=== PATIENT | male | born 1960 | race Caucasian/White ===

== ENCOUNTER 2023-10-23 21:03 | Emergency (ER) | payer SELFPAY ==
[2023-10-23 21:05] VITALS: BP 144/85
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
[2023-10-23 22:32] VITALS: BP 116/66
== END 2023-10-23 22:46 | disposition home or self-care (01) ==
LOC: EMR 21:03
PROVIDERS: EMERGENCY PHYSICIAN Emergency Medicine; FAMILY PHYSICIAN Family Medicine
DX: R60.0 Localized edema (principal); R03.0 Elevated blood-pressure reading, without diagnosis of hypertension
CPT/HCPCS: 99284; 73552; 73590; 93971